=== PATIENT | female | born 1985 | race African-American/Black ===

== ENCOUNTER 2023-03-12 06:35 | Emergency (ER) | payer OTHER ==
[2023-03-12 06:41] VITALS: BP 135/76; PULSE 89; RESP 18; TEMP 98.1; BMI 21.7
[2023-03-12] MEDS ORDERED: FAMOTIDINE 20 MG/50 ML IVPB 20 MG/50 ML MG IVPB ONE ×2 (08:01→08:28)
[2023-03-12] MEDS ORDERED: MAG HYDROX/AL HYDROX/SIMETH -MYLANTA- ORAL SUSPENSION PO ONE (08:01)
[2023-03-12] MEDS ORDERED: ACETAMINOPHEN 1000 MG/100 ML BAG IVPB ONE (08:01)
[2023-03-12] MEDS ORDERED: LACTATED RINGERS SOLUTION 1000 ML INFUS.BAG IV ONE (08:01)
[2023-03-12] MEDS ORDERED: ONDANSETRON 4 MG/2 ML VIAL IVPUSH ONE (08:09)
[2023-03-12] MEDS ORDERED: ACETAMINOPHEN INJECTION 100 ML IVPB ONE (08:27)
[2023-03-12] MEDS ORDERED: ONDANSETRON 4 MG/2 ML VIAL ONE (08:27)
[2023-03-12] MEDS ORDERED: MAG HYDROX/AL HYDROX/SIMETH 30 ML UNIT-DOSE CUP ONE ×2 (08:27→08:28)
[2023-03-12 09:14] LABS: POTASSIUM 3.7 mmol/L (3.5-5.1)
[2023-03-12 09:15] LABS: CALCIUM 8.9 mg/dL (8.5-10.1)
[2023-03-12 09:16] LABS: ALBUMIN 3.4 g/dl (3.4-5.0); BLOOD UREA NITROGEN 7.5 mg/dL (7-18)
[2023-03-12 09:19] LABS: CREATININE 0.9 mg/dL (0.55-1.3)
[2023-03-12 09:20] LABS: BILIRUBIN,TOTAL 0.3 mg/dL (0.2-1)
[2023-03-12 09:50] LABS: EOS % 0.6 % (0-4.5); HEMATOCRIT 37.7 % (32.4-45.2); LYMPH % 32.5 % (8-40); MCH 28.6 pg (25.7-33.7); MCHC 34.4 g/dl (32.0-36.0); MEAN CELL VOLUME 83.2 fl (80-96); MEAN PLT VOLUME 8.5 fl (7.5-11.1); MONO % 10.4 % (3.8-10.2); NEUT % 55.5 % (42.8-82.8); PLATELET COUNT 169 10^3/uL (134-434); RBC 4.53 M/mm3 (3.60-5.2); RDW 15.2 % (11.6-15.6); WHITE BLOOD COUNT 4.7 K/mm3 (4.0-10.0)
[2023-03-12] MEDS ORDERED: METOCLOPRAMIDE HCL INJECTION 10 MG/2 ML VIAL IVPB ONE (09:59)
[2023-03-12 10:07] LABS: EPI CELLS 3 /uL (0-25.1); HYALINE CASTS 0 /uL (0-3.1); URINE APPEARANCE CLEAR; URINE BACTERIA 12 /uL (0-1359); URINE BILIRUBIN NEGATIVE (NEGATIVE); URINE COLOR YELLOW; URINE GLUCOSE (UA) NEGATIVE (NEGATIVE); URINE KETONE NEGATIVE (NEGATIVE); URINE LEUK ESTERASE NEGATIVE (NEGATIVE); URINE NITRITE NEGATIVE (NEGATIVE); URINE PROTEIN NEGATIVE (NEGATIVE); URINE RBC 137 /uL (0-23.9); URINE UROBILINOGEN 0.2 mg/dL (0.2-1.0); URINE WBC 2 /uL (0-25.8)
== END 2023-03-12 11:45 | disposition home or self-care (01) ==
LOC: JER 06:35
PROC: 3E033GC Introduction of Other Therapeutic Substance into Peripheral Vein, Percutaneous Approach (ICD-10-PCS; principal; 2023-03-12)
DX: K52.9 Noninfective gastroenteritis and colitis, unspecified (principal); R31.9 Hematuria, unspecified
CPT/HCPCS: 36415; 76775-TC; 80053; 81003; 83690; 84703; 85025; 87086; 99284-25